=== PATIENT | female | born 1975 | race African-American/Black ===

== ENCOUNTER → 2016-12-23 | Outpatient (CLI) | payer BC ==
--- NOTE | 2016-12-23 12:24 | RADIOLOGY REPORT (SQ) ---
EXAM DESCRIPTION: SACRUM AND COCCYX COMPLETED DATE/TIME: 12/23/2016 12:14 pm REASON FOR STUDY: SACROCOCCYGEAL DISORDERS, NOT ELSEWHERE CLASSIFIED M53.3 SACROCOCCYGEAL DISORDERS , NOT ELSEWHERE CLASSIFIED COMPARISON: None. NUMBER OF VIEWS: Three views. TECHNIQUE: AP, lateral, and tilt views of the sacrum and coccyx. LIMITATIONS: None. FINDINGS: MINERALIZATION: Normal. BONES: No acute fracture or dislocation. No worrisome bone lesions. SOFT TISSUES: An IUD is present. OTHER: No other significant finding. IMPRESSION: NEGATIVE STUDY OF THE SACRUM AND COCCYX. TECHNICAL DOCUMENTATION: JOB ID: [id number] [employer]- All Rights Reserved
== END ==
LOC: OD 12:00
PROVIDERS: ATTEND Nurse Practitioner Acute Care
DX: M53.3 Sacrococcygeal disorders, not elsewhere classified (principal)
CPT/HCPCS: 72220

== ENCOUNTER → 2017-08-19 | Outpatient (CLI) | payer BC ==
--- NOTE | 2017-08-19 17:27 | WOMENS IMAGING REPORT ---
EXAM DESCRIPTION: BILAT DIAGNOSTIC MAMMO W/CAD; U/S BREAST UNILAT LIMITED COMPLETED DATE/TIME: 08/19/2017 11:21 am; 08/19/2017 12:20 pm REASON FOR STUDY: SCREENING MAMMO; LT [id number] N61.0 MASTITIS WITHOUT ABSCESS COMPARISON: None. TECHNIQUE: Standard craniocaudal and mediolateral oblique views of each breast recorded using digita l acquisition. Additional cleavage view, and cone compression views upper outer quadrant left breast. Left whole br east 90 mediolateral view. Left breast ultrasound was also performed. LIMITATIONS: None. FINDINGS: RIGHT BREAST MASSES: No suspicious masses. CALCIFICATIONS: No new or suspicious calcifications. ARCHITECTURAL DISTORTION: None. DEVELOPING DENSITY: None. ASYMMETRY: Asymmetrically dense fibroglandular tissue is seen in the far left upper outer quadrant. No discrete mass or worrisome features mammographically OTHER: No other significant findings. LEFT BREAST MASSES: No suspicious masses. CALCIFICATIONS: No new or suspicious calcifications. ARCHITECTURAL DISTORTION: None. DEVELOPING DENSITY: None. ASYMMETRY: None noted. OTHER: No other significant finding. Read with the assistance of CAD: .[facility] - R2 Cenova Version 1.3 .[facility] Imaging - R2 Cenova Version 1.3 .[facility] Imaging - R2 Cenova Version 2.4 .[facility] [place] R2 Cenova Version 2.4 .[facility] - R2 [employer] Version 9.2 Left breast ultrasound: Patient presents with a skin lesion which ruptured with losing in the medial left breast cleavage reg ion. Ultrasound of this area demonstrates a hypoechoic 2.4 x 1 x 0.3 cm fluid collection immediately deep to the skin surface. No peripheral increased color flow. This most likely represents residua of a ruptured sebaceous cyst. Ultrasound of the left far upper outer quadrant demonstrates no discrete cystic or solid lesions. No worrisome acoustic absorption. No focal sonographic findings. IMPRESSION: No mammographic evidence for malignancy right breast. No mammographic or sonographic evidence for malignancy left breast. BREAST DENSITY: b. There are scattered areas of fibroglandular density. BIRAD: 2 Benign findings. RECOMMENDATION: RECOMMENDED FOLLOW UP: Clinical follow-up for skin lesion in the medial left breast cleavage region. Otherwise, please continue yearly bilateral screening mammograms in August 2018. Consider bilateral screening tomosynthesis. SPECIFIC INTERVENTION/IMAGING/CONSULTATION RECOMMENDED:Clinical followup for skin lesion in the media l left breast COMMUNICATION:Patient notified by letter COMMENT: The patient has been notified of the results by letter per MQSA requirements. Additional no tification policies are in place for contacting patient with suspicious or incomplete findings. Quality ID #[id number]: The [employer] recommends an annual screening mammogram for women aged 40 years or over. This facility utilizes a reminder system to ensure that all patients receive reminder letters, and/or direct phone calls for appointments. This includes reminders for routine scr eening mammograms, diagnostic mammograms, or other Breast Imaging Interventions when appropriate. Th is patient will be placed in the appropriate reminder system. The [employer] (ACR) has developed recommendations for screening MRI of the breast s in certain patient populations, to be used in conjunction with mammography. Breast MRI surveillanc e may be appropriate for women with more than 20% lifetime risk of developing breast cancer as deter mined by genetic testing, significant family history of the disease, or history of mantle radiation f or Hodgkins Disease. ACR Practice Guidelines 2008. TECHNICAL DOCUMENTATION: FINDING NUMBER: (1) ASSESSMENT: (1) JOB ID: [id number] [employer]- All Rights Reserved
--- NOTE | 2017-08-19 17:27 | WOMENS IMAGING REPORT ---
EXAM DESCRIPTION: BILAT DIAGNOSTIC MAMMO W/CAD; U/S BREAST UNILAT LIMITED COMPLETED DATE/TIME: 08/19/2017 11:21 am; 08/19/2017 12:20 pm REASON FOR STUDY: SCREENING MAMMO; LT [id number] N61.0 MASTITIS WITHOUT ABSCESS COMPARISON: None. TECHNIQUE: Standard craniocaudal and mediolateral oblique views of each breast recorded using digita l acquisition. Additional cleavage view, and cone compression views upper outer quadrant left breast. Left whole br east 90 mediolateral view. Left breast ultrasound was also performed. LIMITATIONS: None. FINDINGS: RIGHT BREAST MASSES: No suspicious masses. CALCIFICATIONS: No new or suspicious calcifications. ARCHITECTURAL DISTORTION: None. DEVELOPING DENSITY: None. ASYMMETRY: Asymmetrically dense fibroglandular tissue is seen in the far left upper outer quadrant. No discrete mass or worrisome features mammographically OTHER: No other significant findings. LEFT BREAST MASSES: No suspicious masses. CALCIFICATIONS: No new or suspicious calcifications. ARCHITECTURAL DISTORTION: None. DEVELOPING DENSITY: None. ASYMMETRY: None noted. OTHER: No other significant finding. Read with the assistance of CAD: .[facility] - R2 Cenova Version 1.3 .[facility] Imaging - R2 Cenova Version 1.3 .[facility] Imaging - R2 Cenova Version 2.4 .[facility] [place] R2 Cenova Version 2.4 .[facility] - R2 [employer] Version 9.2 Left breast ultrasound: Patient presents with a skin lesion which ruptured with losing in the medial left breast cleavage reg ion. Ultrasound of this area demonstrates a hypoechoic 2.4 x 1 x 0.3 cm fluid collection immediately deep to the skin surface. No peripheral increased color flow. This most likely represents residua of a ruptured sebaceous cyst. Ultrasound of the left far upper outer quadrant demonstrates no discrete cystic or solid lesions. No worrisome acoustic absorption. No focal sonographic findings. IMPRESSION: No mammographic evidence for malignancy right breast. No mammographic or sonographic evidence for malignancy left breast. BREAST DENSITY: b. There are scattered areas of fibroglandular density. BIRAD: 2 Benign findings. RECOMMENDATION: RECOMMENDED FOLLOW UP: Clinical follow-up for skin lesion in the medial left breast cleavage region. Otherwise, please continue yearly bilateral screening mammograms in August 2018. Consider bilateral screening tomosynthesis. SPECIFIC INTERVENTION/IMAGING/CONSULTATION RECOMMENDED:Clinical followup for skin lesion in the media l left breast COMMUNICATION:Patient notified by letter COMMENT: The patient has been notified of the results by letter per MQSA requirements. Additional no tification policies are in place for contacting patient with suspicious or incomplete findings. Quality ID #225: The [employer] recommends an annual screening mammogram for women aged 40 years or over. This facility utilizes a reminder system to ensure that all patients receive reminder letters, and/or direct phone calls for appointments. This includes reminders for routine scr eening mammograms, diagnostic mammograms, or other Breast Imaging Interventions when appropriate. Th is patient will be placed in the appropriate reminder system. The [employer] (ACR) has developed recommendations for screening MRI of the breast s in certain patient populations, to be used in conjunction with mammography. Breast MRI surveillanc e may be appropriate for women with more than 20% lifetime risk of developing breast cancer as deter mined by genetic testing, significant family history of the disease, or history of mantle radiation f or Hodgkins Disease. ACR Practice Guidelines 2008. TECHNICAL DOCUMENTATION: FINDING NUMBER: (1) ASSESSMENT: (1) JOB ID: [id number] [employer]- All Rights Reserved
== END ==
LOC: RAD 10:31
PROVIDERS: ATTEND Internal Medicine
DX: N61.0 Mastitis without abscess (principal)
CPT/HCPCS: 76642; 77066

== ENCOUNTER → 2018-11-23 | Outpatient (CLI) | payer BC ==
[2018-11-23 10:52] LABS: ABSOLUTE EOSINOPHILS # (AUTO) 0.2 10^3/uL (0.0-0.6); ABSOLUTE LYMPHOCYTES (AUTO) 2.5 10^3/uL (0.5-4.7); ABSOLUTE MONOCYTES (AUTO) 0.4 10^3/uL (0.1-1.4); ABSOLUTE NEUT (AUTO) 1.7 10^3/uL (1.7-8.2); BASOPHILS % (AUTO) 0.9 % (0-2); EOSINOPHILS % (AUTO) 3.2 % (0-6); HEMATOCRIT 42.5 % (36.0-47.0); HEMOGLOBIN 14.2 g/dL (12.0-15.5); LYMPHOCYTES % (AUTO) 52.2 % (13-45); MEAN CORPUSCULAR HEMOGLOBIN 31.2 pg (27.0-33.4); MEAN CORPUSCULAR HGB CONC 33.3 g/dL (32.0-36.0); MEAN CORPUSCULAR VOLUME 94 fl (80-97); MONOCYTES % (AUTO) 7.7 % (3-13); PLATELET COUNT 266 10^3/uL (150-450); RED BLOOD COUNT 4.53 10^6/uL (3.72-5.28); RED CELL DISTRIBUTION WIDTH 14.7 % (11.5-14.0); TOTAL CELLS COUNTED % (AUTO) 100 %; WHITE BLOOD COUNT 4.8 10^3/uL (4.0-10.5)
[2018-11-23 10:54] LABS: APPEARANCE,URINE CLEAR; BILIRUBIN,URINE NEGATIVE (NEGATIVE); COLOR,URINE YELLOW; GLUCOSE, URINE NEGATIVE (NEGATIVE); KETONES,URINE NEGATIVE (NEGATIVE); LEUKOCYTE ESTERASE,URINE NEGATIVE (NEGATIVE); NITRITE,URINE NEGATIVE (NEGATIVE); PROTEIN,URINE NEGATIVE (NEGATIVE); URINE SPECIFIC GRAVITY 1.015; UROBILINOGEN,URINE NEGATIVE mg/dL (<2.0)
[2018-11-23 11:10] LABS: ALANINE AMINOTRANSFERASE 29 U/L (9-52); ALBUMIN 3.8 g/dL (3.5-5.0); ALKALINE PHOSPHATASE 64 U/L (38-126); ANION GAP 7 (5-19); ASPARTATE AMINO TRANSFERASE 27 U/L (14-36); BILIRUBIN,DIRECT 0.2 mg/dL (0.0-0.4); BILIRUBIN,TOTAL 0.4 mg/dL (0.2-1.3); BLOOD UREA NITROGEN 5 mg/dL (7-20); CALCIUM 9.4 mg/dL (8.4-10.2); CARBON DIOXIDE 28 mmol/L (22-30); CHLORIDE 105 mmol/L (98-107); CHOLESTEROL 267.74 mg/dL (0-200); GLUCOSE 83 mg/dL (75-110); POTASSIUM 4.8 mmol/L (3.6-5.0); SODIUM 140.3 mmol/L (137-145); TOTAL PROTEIN 7.1 g/dL (6.3-8.2); TRIGLYCERIDES 139 mg/dL (<150); URIC ACID 6.5 mg/dL (2.5-7.0)
[2018-11-23 11:21] LABS: DIRECT LDL 170 mg/dL (<100)
[2018-11-23 11:25] LABS: FREE T4 (FREE THYROXINE) 1.08 ng/dL (0.78-2.19)
[2018-11-23 11:39] LABS: THYROID STIMULATING HORMONE 1.63 uIU/mL (0.47-4.68)
== END ==
LOC: OD 09:50
PROVIDERS: ATTEND Internal Medicine
DX: Z13.1 Encounter for screening for diabetes mellitus (principal); I10 Essential (primary) hypertension
CPT/HCPCS: 36415; 80053; 80061; 81001; 83036; 84439; 84443; 84550; 85025

== ENCOUNTER 2020-03-21 19:26 | Observation (INO) | payer BC ==
[2020-03-21] MEDS ORDERED: ACETAMINOPHEN 325 MG TABLET PO ONE (21:14)
--- NOTE | 2020-03-21 23:29 | ER Document Report ---
ED General - General Chief Complaint: Chest Pain Stated Complaint: ABNORMAL LAB Notes: 44-year-old female history of prior PE presents with PE. Patient says that she is over the past 2 days had left upper chest pain exacerbated by breathing associated with shortness of breath. Patient had gone to urgent care last week for pain in her right hip and had imaging which was negative and then saw Dr. Powers today and was referred for CTA which showed PE so she was sent to ED. Patient has not had any recent anticoagulation. Reports prior hypercoagulability work-up being negative but mother has history of PE father of PE and paternal grandfather also had PE. Patient was on OCP when had prior PE but is not currently takin. patient denies any syncope, renal history, GI symptoms, other pulmonary history, cardiac history, recent travel/trauma/immobilization although patient works as a business analysis analyst TRAVEL OUTSIDE OF THE [place] IN LAST 30 DAYS: No - Related Data Allergies/Adverse Reactions: No Known Allergies Allergy (Unverified 03/21/20 19:47) Past Medical History - General Information source: Patient, Relative - Social History Smoking Status: Never Smoker Frequency of alcohol use: Occasional Drug Abuse: None Family History: Reviewed & Not Pertinent Patient has homicidal ideation: No - Past Medical History Cardiac Medical History: Reports: Hx Hypercholesterolemia Review of Systems - Review of Systems Notes: REVIEW OF SYSTEMS: CONSTITUTIONAL : Denies fever, chills, or sweats. EENT: Denies recent cold/sinus symptoms, denies throat pain CARDIOVASCULAR: + chest pain, +ANIKA RESPIRATORY: Denies cough, + shortness of breath. GASTROINTESTINAL: Denies abdominal pain, nausea/vomiting. GENITOURINARY: Denies difficulty urinating, painful urination. FEMALE GENITOURINARY: Denies abnormal vaginal bleeding, vaginal discharge. MUSCULOSKELETAL: Denies neck pain, back pain. SKIN: Denies rash or skin lesions. HEMATOLOGIC : Denies easy bruising or bleeding. LYMPHATIC: Denies swollen, enlarged glands. NEUROLOGICAL: Denies headache, denies change in gait. PSYCHIATRIC: Denies anxiety or stress or depression. Physical Exam - Vital signs Vitals: Resp 24 H 03/21/20 19:40 - Notes Notes: PHYSICAL EXAMINATION: GENERAL: Well-appearing, well-nourished, uncomfortable appearing but in no acute distress. HEAD: Atraumatic, normocephalic. EYES: Pupils equal round and appropriate constriction, sclera anicteric, conjunctiva are normal. ENT: nares patent, moist mucous membranes. NECK: Normal range of motion, supple without lymphadenopathy LUNGS: Breath sounds clear to auscultation bilaterally and equal. No wheezes rales or rhonchi. Mildly tachypneic, speaking in full sentences HEART: Mildly tachycardic, regular rhythm, no murmurs rubs or gallops ABDOMEN: Soft, nontender, no guarding, no masses, no CVAT EXTREMITIES: Normal range of motion, no pitting, mild edema bilaterally greater in left lower extremity, no hip tenderness, normal range of motion, normal inspection NEUROLOGICAL: Awake, alert, conversing appropriately, moves all extremities spontaneously. PSYCH: Normal mood, normal affect. SKIN: Warm, Dry, normal turgor, no rashes or lesions noted. 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 Patient appropriate for observation to ensure treatment response, placed on 2 L nasal cannula and patient feels more comfortable. 03/22/20 02:24 Patient continues to have chest pain and ordered single dose of morphine to facilitate care, remains hemodynamically stable, no worsening symptoms, no change in patient's status. - Vital Signs Vital signs: Temp Pulse Resp BP Pulse Ox 98.2 F 84 16 126/78 H 97 03/23/20 13:33 03/23/20 13:33 03/23/20 13:33 03/23/20 13:33 03/23/20 13:33 - Laboratory Result Diagrams: 03/21/20 23:25 03/21/20 23:25 Laboratory results interpreted by me: 03/21/20 03/21/20 03/21/20 23:25 23:25 23:25 RDW 14.6 H APTT 38.9 H Sodium 136.9 L - EKG Interpretation by Me Additional EKG results interpreted by me: 03/21/20 22:00 Sinus tachycardia, no significant ST elevations or depressions, no significant T wave abnormalities , QTc 423 Discharge - Discharge Clinical Impression: Acute pulmonary embolism Qualifiers: Pulmonary embolism type: unspecified Acute cor pulmonale presence: unspecified Qualified Code(s): I26.99 - Other pulmonary embolism without acute cor pulmonale Condition: Stable Disposition: ADMITTED OBSERVATION Admitting Provider: Priya Unit Admitted: Telemetry
[2020-03-21] MEDS ORDERED: ENOXAPARIN SODIUM INJ 150 MG/1 ML DISP.SYRIN SUBCUT SCH (23:30)
[2020-03-21 23:43] LABS: ABSOLUTE BASOPHILS # (AUTO) 0.1 10^3/uL (0.0-0.2); ABSOLUTE EOSINOPHILS # (AUTO) 0.1 10^3/uL (0.0-0.6); ABSOLUTE LYMPHOCYTES (AUTO) 2.8 10^3/uL (0.5-4.7); ABSOLUTE MONOCYTES (AUTO) 0.7 10^3/uL (0.1-1.4); ABSOLUTE NEUT (AUTO) 4.7 10^3/uL (1.7-8.2); BASOPHILS % (AUTO) 1.5 % (0-2); EOSINOPHILS % (AUTO) 0.8 % (0-6); HEMATOCRIT 39.4 % (36.0-47.0); HEMOGLOBIN 13.8 g/dL (12.0-15.5); LYMPHOCYTES % (AUTO) 33.6 % (13-45); MEAN CORPUSCULAR VOLUME 92 fl (80-97); MONOCYTES % (AUTO) 8.7 % (3-13); PLATELET COUNT 283 10^3/uL (150-450); RED BLOOD COUNT 4.31 10^6/uL (3.72-5.28); RED CELL DISTRIBUTION WIDTH 14.6 % (11.5-14.0); SEGMENTED NEUTROPHILS % (AUTO) 55.4 % (42-78); TOTAL CELLS COUNTED % (AUTO) 100 %; WHITE BLOOD COUNT 8.4 10^3/uL (4.0-10.5)
[2020-03-21 23:49] LABS: INTERNATIONAL RATION (INR) 0.98; PARTIAL THROMBOPLASTIN TIME 38.9 SEC (23.5-35.8); PROTHROMBIN TIME 13.2 SEC (11.4-15.4)
[2020-03-21 23:52] LABS: ALBUMIN 4.2 g/dL (3.5-5.0); ALKALINE PHOSPHATASE 63 U/L (38-126); ANION GAP 8 (5-19); ASPARTATE AMINO TRANSFERASE 21 U/L (14-36); BILIRUBIN,DIRECT 0.3 mg/dL (0.0-0.4); BILIRUBIN,TOTAL 0.6 mg/dL (0.2-1.3); BLOOD UREA NITROGEN 7 mg/dL (7-20); CALCIUM 9.2 mg/dL (8.4-10.2); CARBON DIOXIDE 23 mmol/L (22-30); CHLORIDE 106 mmol/L (98-107); GLUCOSE 92 mg/dL (75-110); POTASSIUM 4.2 mmol/L (3.6-5.0); TOTAL PROTEIN 7.6 g/dL (6.3-8.2)
[2020-03-22 00:04] LABS: NT PRO BNP 14 pg/mL (<125)
[2020-03-22 00:09] LABS: TROPONIN I < 0.012 ng/mL
[2020-03-22] MEDS ORDERED: APIXABAN 5 MG TABLET PO ONE ×2 (00:15→02:45)
[2020-03-22] MEDS ORDERED: MORPHINE SULFATE 10 MG/ML INJ IV ONE (02:24)
[2020-03-22] MEDS: APIXABAN 5 MG TABLET PO SCH ×2 (10:05→22:09)
--- NOTE | 2020-03-22 12:48 | RADIOLOGY REPORT (SQ) ---
EXAM DESCRIPTION: VENOUS BILATERAL LOWER IMAGES COMPLETED DATE/TIME: 03/22/2020 11:36 am REASON FOR STUDY: SUSPECT DVT COMPARISON: None. TECHNIQUE: Dynamic and static wilson scale and color images acquired of both lower extremity venous sy stems. Selected spectral images acquired with additional compression and augmentation maneuvers. Imag es stored on PACS. LIMITATIONS: None. FINDINGS: RIGHT LEG COMMON FEMORAL AND FEMORAL: Normal phasicity, compression and augmentation. No visualized echogenic m aterial on wilson scale. No defects on color images. POPLITEAL: Normal compression and augmentation. No visualized echogenic material on wilson scale. No de fects on color images. CALF VESSELS: Normal compression and augmentation. No visualized echogenic material on wilson scale. No defects on color image. GSV AND SSV: Normal compression. No visualized echogenic material on wilson scale. No defects on color images. ANY DEEP VENOUS INSUFFICIENCY: Not evaluated. ANY EVIDENCE OF POPLITEAL CYST: No. OTHER: No other significant finding. LEFT LEG COMMON FEMORAL AND FEMORAL: Normal phasicity, compression and augmentation. No visualized echogenic m aterial on wilson scale. No defects on color images. POPLITEAL: Normal compression and augmentation. No visualized echogenic material on wilson scale. No de fects on color images. CALF VESSELS: Normal compression and augmentation. No visualized echogenic material on wilson scale. No defects on color images. GSV AND SSV: Normal compression. No visualized echogenic material on wilson scale. No defects on color images. ANY DEEP VENOUS INSUFFICIENCY: Not evaluated. ANY EVIDENCE POPLITEAL CYST: No. OTHER: No other significant finding. IMPRESSION: NO EVIDENCE DVT OR SVT IN EITHER LEG. TECHNICAL DOCUMENTATION: JOB ID: [id number] 2010 [id number]- All Rights Reserved Reading location - IP/workstation name: [email or web address]
--- NOTE | 2020-03-22 16:45 | EKG REPORT ---
SEVERITY:- BORDERLINE ECG - SINUS TACHYCARDIA BORDERLINE T ABNORMALITIES, INFERIOR LEADS : Confirmed by: López Clifford MD 22-Mar-2020 16:45:04
[2020-03-22] MEDS: HYDROMORPHONE HCL INJ/PF 2 MG/ML AMPULE IV PRN (20:24)
--- NOTE | 2020-03-22 21:10 | PDOC H&P ---
History of Present Illness Admission Date/PCP: 03/21/20 23:37 BERTA SYKES MD History of Present Illness: MANUELITO KNOWLES is a 44 year old female,She came to the office for evaluation of pleuritic chest pain, shortness of breath, she was found to have increased pulse rate, she has a history of bilateral pulmonary embolism, strong family history of pulmonary embolism, both parents had pulmonary embolism, the father is the mother is alive, I suspected this could be pulmonary embolism a stat CT angiogram was requested it confirmed pulmonary embolism albeit small Past Medical History Cardiac Medical History: Reports: Hyperlipidema Psychiatric Medical History: Denies: Depression Social History Smoking Status: Never Smoker Frequency of Alcohol Use: Occasional Hx Recreational Drug Use: - 20+ years ago Drugs: Marijuana Family History Parental Family History Reviewed: Yes Children Family History Reviewed: Yes Sibling(s) Family History Reviewed.: Yes Medication/Allergy Home Medications: RX: Phentermine HCl 37.5 mg PO QAM 03/22/20 Allergies/Adverse Reactions: No Known Allergies Allergy (Unverified 03/21/20 19:47) Review of Systems Constitutional: ABSENT: chills, fever(s), headache(s), weight gain, weight loss Eyes: ABSENT: visual disturbances Ears: ABSENT: hearing changes Cardiovascular: PRESENT: dyspnea on exertion Respiratory: ABSENT: cough, hemoptysis Gastrointestinal: ABSENT: abdominal pain, constipation, diarrhea, hematemesis, hematochezia, nausea, vomiting Genitourinary: ABSENT: dysuria, hematuria Musculoskeletal: ABSENT: joint swelling Integumentary: ABSENT: rash, wounds Neurological: ABSENT: abnormal gait, abnormal speech, confusion, dizziness, focal weakness, syncope Psychiatric: ABSENT: anxiety, depression, homidical ideation, suicidal ideation Endocrine: ABSENT: cold intolerance, heat intolerance, menstrual abnormalities, polydipsia, polyuria Hematologic/Lymphatic: ABSENT: easy bleeding, easy bruising, lymphadenopathy Physical Exam Vital Signs: Temp Pulse Resp BP Pulse Ox 97.7 F 111 H 14 135/98 H 99 03/22/20 20:16 03/22/20 20:16 03/22/20 20:16 03/22/20 20:16 03/22/20 20:16 Intake & Output 03/21/20 03/22/20 03/23/20 06:59 06:59 06:59 Intake Total 240 Balance 240 Weight 131.542 kg General appearance: PRESENT: no acute distress, well-developed, well-nourished Head exam: PRESENT: atraumatic, normocephalic Eye exam: PRESENT: conjunctiva pink, EOMI, PERRLA Ear exam: PRESENT: normal external ear exam Mouth exam: PRESENT: moist, tongue midline Neck exam: PRESENT: full ROM Respiratory exam: PRESENT: clear to auscultation xavier Cardiovascular exam: PRESENT: RRR, +S1, +S2 Pulses: PRESENT: normal dorsalis pedis pul, +2 pedal pulses bilateral Vascular exam: PRESENT: normal capillary refill GI/Abdominal exam: PRESENT: normal bowel sounds, soft Rectal exam: PRESENT: deferred Neurological exam: PRESENT: alert, awake, oriented to person, oriented to place, oriented to time, oriented to situation, CN II-XII grossly intact Psychiatric exam: PRESENT: appropriate affect, normal mood Skin exam: PRESENT: dry, intact, warm Results Laboratory Results: 03/21/20 23:25 03/21/20 23:25 03/21/20 03/21/20 03/21/20 23:25 23:25 23:25 WBC 8.4 RBC 4.31 Hgb 13.8 Hct 39.4 MCV 92 MCH 32.0 MCHC 35.0 RDW 14.6 H Plt Count 283 Seg Neutrophils % 55.4 Sodium 136.9 L Potassium 4.2 Chloride 106 Carbon Dioxide 23 Anion Gap 8 BUN 7 Creatinine 0.63 Est GFR ( Amer) > 60 Glucose 92 Calcium 9.2 Total Bilirubin 0.6 AST 21 Alkaline Phosphatase 63 Total Protein 7.6 Albumin 4.2 Serum HCG, Qual Blood Type O POSITIVE Antibody Screen NEGATIVE 03/21/20 23:25 WBC RBC Hgb Hct MCV MCH MCHC RDW Plt Count Seg Neutrophils % Sodium Potassium Chloride Carbon Dioxide Anion Gap BUN Creatinine Est GFR ( Amer) Glucose Calcium Total Bilirubin AST Alkaline Phosphatase Total Protein Albumin Serum HCG, Qual NEGATIVE Blood Type Antibody Screen 03/21/20 23:25 Troponin I < 0.012 NT-Pro-B Natriuret Pep 14 Impressions: Venous Doppler Study 03/22/20 00:00 IMPRESSION: NO EVIDENCE DVT OR SVT IN EITHER LEG. Assessment & Plan - Diagnosis (1) Acute pulmonary embolism Qualifiers: Pulmonary embolism type: unspecified Acute cor pulmonale presence: unspecified Qualified Code(s): I26.99 - Other pulmonary embolism without acute cor pulmonale Is this a current diagnosis for this admission?: Yes Plan: This is recurrent PE, unprovoked, she will need to be on lifelong anticoagulation, start loading dose Eliquis 10 mg p.o. twice daily for 7 days (2) Morbid (severe) obesity due to excess calories Is this a current diagnosis for this admission?: Yes - Time Time Spent: Greater than 70 Minutes Medications reviewed and adjusted accordingly: Yes Anticipated Discharge Disposition: Home, Self Care Anticipated Discharge Timeframe: within 48 hours
[2020-03-23] MEDS: HYDROMORPHONE HCL INJ/PF 2 MG/ML AMPULE IV PRN (08:07)
[2020-03-23] MEDS: APIXABAN 5 MG TABLET PO SCH (09:08)
[2020-03-23] MEDS ORDERED: DOCUSATE SODIUM 100 MG CAPSULE PO SCH (12:30)
--- NOTE | 2020-03-23 13:32 | PDOC DISCHARGE SUMMARY ---
Impression - Admit/DC Date/PCP Admission Date/Primary Care Provider: 03/21/20 23:37 BERTA SYKES MD Discharge Date: 03/23/20 - Discharge Diagnosis (1) Acute pulmonary embolism Is this a current diagnosis for this admission?: Yes (2) Morbid (severe) obesity due to excess calories Is this a current diagnosis for this admission?: Yes (3) Pleurodynia Is this a current diagnosis for this admission?: Yes - Additional Information Referrals: BERTA SYKES MD [Primary Care Provider] - Follow up as needed Prescriptions: Acetaminophen with Codeine [Acetaminophen-Cod #4 Tablet] 1 each PO Q8H #60 tablet Apixaban [Eliquis 5 mg Tablet] 10 mg PO Q12 #10 tablet Home Medications: Phentermine HCl 37.5 mg PO QAM 03/22/20 Acetaminophen with Codeine [Acetaminophen-Cod #4 Tablet] 1 each PO Q8H #60 tablet 03/23/20 Apixaban [Eliquis 5 mg Tablet] 10 mg PO Q12 #10 tablet 03/23/20 History of Present Illiness History of Present Illness: MANUELITO KNOWLES is a 44 year old female,She came to the office for evaluation of pleuritic chest pain, shortness of breath, she was found to have increased pulse rate, she has a history of bilateral pulmonary embolism, strong family history of pulmonary embolism, both parents had pulmonary embolism, the father is the mother is alive, I suspected this could be pulmonary embolism a stat CT angiogram was requested it confirmed pulmonary embolism albeit small Hospital Course Hospital Course: Patient was admitted for the management of pulmonary embolism, she was brought in for observation, she was treated with oral anticoagulant Eliquis, loading dose 10 mg p.o. twice daily for 7 days then 5 mg p.o. daily for 1 year then 2.5 mg p.o. twice daily lifelong. This is recurrent pulmonary embolism, she has a history of bilateral pulmonary embolism, the PE is unprovoked. Lower extremity venous Doppler was obtained, negative for DVT, she also has chest pain, pleuritic chest pain treated with Dilaudid with relief discharged home on Tylenol with codeine No. 4 for control pain. Physical Exam Vital Signs: Temp Pulse Resp BP Pulse Ox 98.2 F 84 16 136/88 H 97 03/23/20 11:14 03/23/20 11:14 03/23/20 11:14 03/23/20 11:14 03/23/20 11:14 Intake & Output 03/22/20 03/23/20 03/24/20 06:59 06:59 06:59 Intake Total 240 480 Balance 240 480 Weight 131.542 kg General appearance: PRESENT: no acute distress Eye exam: PRESENT: PERRLA Respiratory exam: PRESENT: clear to auscultation xavier Cardiovascular exam: PRESENT: +S1, +S2 GI/Abdominal exam: PRESENT: soft Neurological exam: PRESENT: alert Results Laboratory Results: WBC 8.4 10^3/uL (4.0-10.5) 03/21/20 23:25 RBC 4.31 10^6/uL (3.72-5.28) 03/21/20 23:25 Hgb 13.8 g/dL (12.0-15.5) 03/21/20 23:25 Hct 39.4 % (36.0-47.0) 03/21/20 23:25 MCV 92 fl (80-97) 03/21/20 23:25 MCH 32.0 pg (27.0-33.4) 03/21/20 23:25 MCHC 35.0 g/dL (32.0-36.0) 03/21/20 23:25 RDW 14.6 % (11.5-14.0) H 03/21/20 23:25 Plt Count 283 10^3/uL (150-450) 03/21/20 23:25 Lymph % (Auto) 33.6 % (13-45) 03/21/20 23:25 [place] % (Auto) 8.7 % (3-13) 03/21/20 23:25 Eos % (Auto) 0.8 % (0-6) 03/21/20 23:25 Baso % (Auto) 1.5 % (0-2) 03/21/20 23:25 Absolute Neuts (auto) 4.7 10^3/uL (1.7-8.2) 03/21/20 23:25 Absolute Lymphs (auto) 2.8 10^3/uL (0.5-4.7) 03/21/20 23:25 Absolute Monos (auto) 0.7 10^3/uL (0.1-1.4) 03/21/20 23:25 Absolute Eos (auto) 0.1 10^3/uL (0.0-0.6) 03/21/20 23:25 Absolute Basos (auto) 0.1 10^3/uL (0.0-0.2) 03/21/20 23:25 Seg Neutrophils % 55.4 % (42-78) 03/21/20 23:25 PT 13.2 SEC (11.4-15.4) 03/21/20 23:25 INR 0.98 03/21/20 23:25 APTT 38.9 SEC (23.5-35.8) H 03/21/20 23:25 Sodium 136.9 mmol/L (137-145) L 03/21/20 23:25 Potassium 4.2 mmol/L (3.6-5.0) 03/21/20 23:25 Chloride 106 mmol/L (98-107) 03/21/20 23:25 Carbon Dioxide 23 mmol/L (22-30) 03/21/20 23:25 Anion Gap 8 (5-19) 03/21/20 23:25 BUN 7 mg/dL (7-20) 03/21/20 23:25 Creatinine 0.63 mg/dL (0.52-1.25) 03/21/20 23:25 Est GFR ( Amer) > 60 (>60) 03/21/20 23:25 Est GFR (MDRD) Non-Af > 60 (>60) 03/21/20 23:25 Glucose 92 mg/dL (75-110) 03/21/20 23:25 Calcium 9.2 mg/dL (8.4-10.2) 03/21/20 23:25 Total Bilirubin 0.6 mg/dL (0.2-1.3) 03/21/20 23:25 Direct Bilirubin 0.3 mg/dL (0.0-0.4) 03/21/20 23:25 Neonat Total Bilirubin Not Reportable 03/21/20 23:25 Neonat Direct Bilirubin Not Reportable 03/21/20 23:25 Neonat Indirect Bili Not Reportable 03/21/20 23:25 AST 21 U/L (14-36) 03/21/20 23:25 ALT 14 U/L (<35) 03/21/20 23:25 Alkaline Phosphatase 63 U/L (38-126) 03/21/20 23:25 Troponin I < 0.012 ng/mL 03/21/20 23:25 NT-Pro-B Natriuret Pep 14 pg/mL (<125) 03/21/20 23:25 Total Protein 7.6 g/dL (6.3-8.2) 03/21/20 23: Albumin 4.2 g/dL (3.5-5.0) 03/21/20 23:25 Serum HCG, Qual NEGATIVE (NEGATIVE) 03/21/20 23:25 Blood Type O POSITIVE 03/21/20 23:25 Antibody Screen NEGATIVE 03/21/20 23:25 03/21/20 23:25 Troponin I < 0.012 NT-Pro-B Natriuret Pep 14 Impressions: Venous Doppler Study 03/22/20 00:00 IMPRESSION: NO EVIDENCE DVT OR SVT IN EITHER LEG. Stroke Is this a Stroke Patient?: No Acute Heart Failure Is this a Heart Failure Patient?: No
[2020-03-23 13:36] VITALS: BP 126/78
== END 2020-03-23 13:58 | disposition home or self-care (01) ==
LOC: ER 19:26 → EH 23:37 → 5 03-22 13:45
PROVIDERS: ADMIT Internal Medicine; ATTEND Internal Medicine
DX: I26.99 Other pulmonary embolism without acute cor pulmonale (principal); E66.01 Morbid (severe) obesity due to excess calories; R07.81 Pleurodynia; Z82.49 Family history of ischemic heart disease and other diseases of the circulatory system; Z86.711 Personal history of pulmonary embolism
CPT/HCPCS: 93005; 99285; 86900; 86901; 36415; 86850; 84703; 85025; 85610; 85730; 80053; 84484; 83880; 93970; 93010; G0378 ×4; J2270; J1170 ×2

== ENCOUNTER → 2020-03-21 | Outpatient (CLI) | payer BC ==
--- NOTE | 2020-03-21 19:02 | RADIOLOGY REPORT (SQ) ---
EXAM DESCRIPTION: CTA CHEST IMAGES COMPLETED DATE/TIME: 03/21/2020 5:56 pm REASON FOR STUDY: (R06.02)SHORTNESS OF BREATH R06.02 SHORTNESS OF BREATH COMPARISON: None. TECHNIQUE: CT scan of the chest performed using helical scanning technique with dynamic intravenous contrast injection. Images reviewed with lung, soft tissue and bone windows. Reconstructed coronal and sagittal MPR images reviewed. Additional 3 dimensional post-processing performed to develop Maximal Intensity Projection images (N[place] P). All images stored on PACS. All CT scanners at this facility use dose modulation, iterative reconstruction, and/or weight based d osing when appropriate to reduce radiation dose to as low as reasonably achievable (ALARA). [facility]: Dose Right [facility]: CareDose [facility]: Dose Right [facility]: Teradose 4D [facility]: Kaeuferportal CONTRAST TYPE AND DOSE: contrast/concentration: Isovue 350.00 mmol/ml; Total Contrast Delivered: 75. 0 ml; Total Saline Delivered: 56.0 ml Contrast bolus adequate for pulmonary arteries and aorta. RENAL FUNCTION: Not recorded here. Refer to the technologist's notes. RADIATION DOSE: CT Rad equipment meets quality standard of care and radiation dose reduction techniq ues were employed. CTDIvol: 37.5 - 42.7 mGy. DLP: 1440 mGy-cm. . LIMITATIONS: None. FINDINGS: LUNGS AND PLEURA: No masses, infiltrates, or pneumothorax. No pleural effusions or pleura l calcifications. AORTA AND GREAT VESSELS: No aneurysm. No dissection. HEART: No pericardial effusion. No significant coronary artery calcifications. PULMONARY ARTERIES: There is a small embolus in 1 of the left lower lobe pulmonary arterial branches. See image 50 series 202. See image 35 series 23. See image 61 and image 63 series 3. HILAR AND MEDIASTINAL STRUCTURES: No identified masses or abnormal nodes. HARDWARE: None in the chest. UPPER ABDOMEN: No significant findings. Limited exam. THYROID AND OTHER SOFT TISSUES: No masses. No adenopathy. BONES: No acute or significant finding. 3D MIPS: Confirm above findings. OTHER: No other significant finding. IMPRESSION: There is a small embolus in 1 of the left lower lobe pulmonary arterial branches. COMMENT: Quality ID # [id number]: Final reports with documentation of one or more dose reduction techniques (e.g., Automated exposure control, adjustment of the mA and/or kV according to patient size, use of iterative reconstruction technique) TECHNICAL DOCUMENTATION: JOB ID: [id number] 2010 [employer]- All Rights Reserved Reading location - IP/workstation name: [email or web address]
== END ==
LOC: RAD 17:05
PROVIDERS: ATTEND Internal Medicine
DX: R06.02 Shortness of breath (principal)
CPT/HCPCS: 71275

== ENCOUNTER 2020-04-02 09:56 | Emergency (ER) | payer BC ==
--- NOTE | 2020-04-02 10:22 | ER Document Report ---
ED Medical Screen (RME) - General Chief Complaint: Productive Cough Stated Complaint: COUGHING UP BLOOD Time Seen by Provider: 04/02/20 10:15 Primary Care Provider: BERTA SYKES MD [Primary Care Provider] - Follow up as needed TRAVEL OUTSIDE OF THE [place] IN LAST 30 DAYS: No - HPI Notes: 04/02/20 10:20 44-year-old female with a history of pulmonary embolism that was diagnosed on March 21 and subsequently placed on Eliquis presents to the emergency room for hemoptysis that started this morning. Patient states she has a history of multiple blood clots in 2006. Patient reports she started with a upper respiratory infection beginning of March, was placed on a Z-Quirino, her symptoms became worse she came to the emergency room with a did find her blood clot, she was admitted. She is a patient of Dr. Sykes. States she does have an IUD unsure of her last menstrual cycle. Reports chest pain with deep breaths. Recently placed on blood pressure medication for hypertension. Denies any fevers or chills, abdominal pain, nausea vomiting or diarrhea. I have greeted and performed a rapid initial assessment of this patient. A comprehensive ED assessment and evaluation of the patient, analysis of test results and completion of the medical decision making process will be conducted by additional ED providers. PHYSICAL EXAMINATION: GENERAL: Well-appearing, well-nourished and in no acute distress. HEAD: Atraumatic, normocephalic. EYES: Pupils equal round extraocular movements intact, conjunctiva are normal. NECK: Normal range of motion CV: s1, s2 regular LUNGS: No respiratory distress Musculoskeletal: Normal range of motion NEUROLOGICAL: Normal speech, normal gait. SKIN: Warm, Dry, normal turgor, no rashes or lesions noted. - Related Data Allergies/Adverse Reactions: No Known Allergies Allergy (Unverified 03/21/20 19:47) Past Medical History - Social History Frequency of alcohol use: Occasional Drug Abuse: None - Past Medical History Cardiac Medical History: Reports: Hx Hypercholesterolemia Psychiatric Medical History: Denies: Hx Depression Physical Exam - Vital signs Vitals: Temp Pulse Resp BP Pulse Ox 98.7 F 97 18 143/79 H 98 04/02/20 10:00 04/02/20 10:00 04/02/20 10:00 04/02/20 10:00 04/02/20 10:00 Course - Vital Signs Vital signs: Temp Pulse Resp BP Pulse Ox 98.7 F 97 18 143/79 H 98 04/02/20 10:00 04/02/20 10:00 04/02/20 10:00 04/02/20 10:00 04/02/20 10:00 Doctor's Discharge - Discharge Referrals: BERTA SYKES MD [Primary Care Provider] - Follow up as needed
[2020-04-02 11:36] LABS: ABSOLUTE EOSINOPHILS # (AUTO) 0.1 10^3/uL (0.0-0.6); ABSOLUTE LYMPHOCYTES (AUTO) 2.3 10^3/uL (0.5-4.7); ABSOLUTE MONOCYTES (AUTO) 0.5 10^3/uL (0.1-1.4); ABSOLUTE NEUT (AUTO) 2.3 10^3/uL (1.7-8.2); BASOPHILS % (AUTO) 0.8 % (0-2); HEMATOCRIT 41.6 % (36.0-47.0); HEMOGLOBIN 14.1 g/dL (12.0-15.5); LYMPHOCYTES % (AUTO) 43.2 % (13-45); MEAN CORPUSCULAR HEMOGLOBIN 31.5 pg (27.0-33.4); MEAN CORPUSCULAR HGB CONC 33.7 g/dL (32.0-36.0); MEAN CORPUSCULAR VOLUME 93 fl (80-97); MONOCYTES % (AUTO) 9.3 % (3-13); PLATELET COUNT 370 10^3/uL (150-450); RED BLOOD COUNT 4.47 10^6/uL (3.72-5.28); RED CELL DISTRIBUTION WIDTH 14.2 % (11.5-14.0); SEGMENTED NEUTROPHILS % (AUTO) 44.7 % (42-78); TOTAL CELLS COUNTED % (AUTO) 100 %; WHITE BLOOD COUNT 5.2 10^3/uL (4.0-10.5)
[2020-04-02 11:37] LABS: APPEARANCE,URINE CLEAR; BILIRUBIN,URINE NEGATIVE (NEGATIVE); COLOR,URINE YELLOW; GLUCOSE, URINE NEGATIVE (NEGATIVE); KETONES,URINE NEGATIVE (NEGATIVE); LEUKOCYTE ESTERASE,URINE TRACE (NEGATIVE); NITRITE,URINE NEGATIVE (NEGATIVE); PROTEIN,URINE NEGATIVE (NEGATIVE); URINE SPECIFIC GRAVITY 1.003; UROBILINOGEN,URINE NEGATIVE mg/dL (<2.0)
[2020-04-02 11:39] LABS: INTERNATIONAL RATION (INR) 1.18; PROTHROMBIN TIME 15.2 SEC (11.4-15.4)
[2020-04-02 11:40] LABS: PARTIAL THROMBOPLASTIN TIME 43.5 SEC (23.5-35.8)
[2020-04-02 11:53] LABS: ALBUMIN 4.1 g/dL (3.5-5.0); ALKALINE PHOSPHATASE 68 U/L (38-126); ANION GAP 9 (5-19); ASPARTATE AMINO TRANSFERASE 28 U/L (14-36); BILIRUBIN,DIRECT 0.2 mg/dL (0.0-0.4); BILIRUBIN,TOTAL 0.4 mg/dL (0.2-1.3); BLOOD UREA NITROGEN 8 mg/dL (7-20); CALCIUM 9.2 mg/dL (8.4-10.2); CARBON DIOXIDE 24 mmol/L (22-30); CHLORIDE 106 mmol/L (98-107); GLUCOSE 88 mg/dL (75-110); POTASSIUM 4.8 mmol/L (3.6-5.0); TOTAL PROTEIN 7.3 g/dL (6.3-8.2)
--- NOTE | 2020-04-02 11:59 | RADIOLOGY REPORT (SQ) ---
EXAM DESCRIPTION: CTA CHEST IMAGES COMPLETED DATE/TIME: 04/02/2020 11:37 am REASON FOR STUDY: Hemoptysis, diagnosed PE 03/21, on Eliquis COMPARISON: 03/21/2020. TECHNIQUE: CT scan of the chest performed using helical scanning technique with dynamic intravenous contrast injection. Images reviewed with lung, soft tissue and bone windows. Reconstructed coronal and sagittal MPR images reviewed. Additional 3 dimensional post-processing performed to develop Maximal Intensity Projection images ([place] P). All images stored on PACS. All CT scanners at this facility use dose modulation, iterative reconstruction, and/or weight based d osing when appropriate to reduce radiation dose to as low as reasonably achievable (ALARA). [facility]: Dose Right [facility]: CareDose [facility]: Dose Right [facility]: Teradose 4D [facility]: Quippi CONTRAST TYPE AND DOSE: contrast/concentration: Isovue 350.00 mmol/ml; Total Contrast Delivered: 75. 0 ml; Total Saline Delivered: 45.5 ml Contrast bolus adequate for pulmonary arteries and aorta. RENAL FUNCTION: None required. The patient is less than 50 years old. RADIATION DOSE: CT Rad equipment meets quality standard of care and radiation dose reduction techniq ues were employed. CTDIvol: 19.8 - 37.5 mGy. DLP: 1384 mGy-cm. . LIMITATIONS: None. FINDINGS: LUNGS AND PLEURA: No masses, infiltrates, or pneumothorax. Interval development of a smal l left pleural effusion. Mild left lower lobe atelectasis. AORTA AND GREAT VESSELS: No aneurysm. Contrast bolus not optimized for the aorta. HEART: No pericardial effusion. No significant coronary artery calcifications. PULMONARY ARTERIES: No emboli visualized in the main pulmonary arteries or the segmental branches. HILAR AND MEDIASTINAL STRUCTURES: No identified masses or abnormal nodes. HARDWARE: None in the chest. UPPER ABDOMEN: No significant findings. Limited exam. THYROID AND OTHER SOFT TISSUES: No masses. No adenopathy. BONES: No acute or significant finding. 3D MIPS: Confirm above findings. OTHER: No other significant finding. IMPRESSION: NORMAL CTA OF THE CHEST. NO PULMONARY EMBOLI. INTERVAL DEVELOPMENT OF A SMALL LEFT PLEURAL EFFUSION WITH MILD ADJACENT ATELECTASIS. COMMENT: Quality ID # [id number]: Final reports with documentation of one or more dose reduction techniques (e.g., Automated exposure control, adjustment of the mA and/or kV according to patient size, use of iterative reconstruction technique) TECHNICAL DOCUMENTATION: JOB ID: [id number] 2010 [employer]- All Rights Reserved Reading location - IP/workstation name: [email or web address]
--- NOTE | 2020-04-02 14:18 | ER Document Report ---
ED General - General Chief Complaint: Productive Cough Stated Complaint: COUGHING UP BLOOD Time Seen by Provider: 04/02/20 10:15 Primary Care Provider: BERTA SYKES MD [Primary Care Provider] - Follow up as needed Mode of Arrival: Ambulatory Information source: Patient TRAVEL OUTSIDE OF THE [place] IN LAST 30 DAYS: No - HPI Notes: Patient presents with an episode of coughing up blood. She states her proxy 1 month she has had a cough. She says it was initially productive of thick sputum. She was then started on Zithromax and the sputum became thinner. However she developed some chest pain and her heart was racing so she went and saw her family physician. At that time he referred her to the hospital and ordered a CT scan of her chest. The CT scan was done last week and showed a small pulmonary embolism on the left side. She was discharged home on a blood thinner. Today for the first time she had one episode of bloody sputum. She still has a mild pain on the right mid back but none on the left. No fevers. She still has a cough although pretty much nonproductive now. The pain that she has in the right mid back is mainly to the lateral right side. No significant radiation. Not significantly decreased or increased with anything. It is a dull pain. It is relatively constant. - Related Data Allergies/Adverse Reactions: No Known Allergies Allergy (Unverified 03/21/20 19:47) Past Medical History - General Information source: Patient - Social History Smoking Status: Never Smoker Frequency of alcohol use: Occasional Drug Abuse: None Family History: Reviewed & Not Pertinent - Past Medical History Cardiac Medical History: Reports: Hx Hypercholesterolemia Psychiatric Medical History: Denies: Hx Depression Review of Systems - Review of Systems Constitutional: denies: Chills, Fever Cardiovascular: denies: Palpitations, Dizziness Gastrointestinal: denies: Diarrhea, Vomiting -: Yes All other systems reviewed and negative Physical Exam - Vital signs Vitals: Temp Pulse Resp BP Pulse Ox 98.7 F 97 18 143/79 H 98 04/02/20 10:00 04/02/20 10:00 04/02/20 10:00 04/02/20 10:00 04/02/20 10:00 Interpretation: Normal - General General appearance: Appears well, Alert - HEENT Head: Normocephalic, Atraumatic Eyes: Normal Pupils: PERRL - Respiratory Respiratory status: No respiratory distress Chest status: Nontender Breath sounds: Normal Chest palpation: Normal - Cardiovascular Rhythm: Regular Heart sounds: Normal auscultation Murmur: No - Abdominal Inspection: Normal Distension: No distension Bowel sounds: Normal Tenderness: Nontender Organomegaly: No organomegaly - Back Back: Normal, Nontender - Extremities General upper extremity: Normal inspection, Nontender, Normal color, Normal ROM, Normal temperature General lower extremity: Normal inspection, Nontender, Normal color, Normal ROM, Normal temperature, Normal weight bearing. No: Sebastian's sign - Neurological Neuro grossly intact: Yes Cognition: Normal Orientation: AAOx4 Aurora Coma Scale Eye Opening: Spontaneous Jacquie Coma Scale Verbal: Oriented Aurora Coma Scale Motor: Obeys Commands Jacquie Coma Scale Total: 15 Speech: Normal Motor strength normal: LUE, RUE, LLE, RLE Sensory: Normal - Psychological Associated symptoms: Normal affect, Normal mood - Skin Skin Temperature: Warm Skin Moisture: Dry Skin Color: Normal Course - Re-evaluation Re-evalutation: 04/02/20 14:15 Patient presents with 1 episode of hemoptysis after being started on a blood thinner for a diagnosis of pulmonary embolism. The embolism was diagnosed last week. She states in addition she has not had a chronic cough for 1 month despite being on antibiotic therapy. I called and discussed the case with the cartographic aide, Dr. Landry. He recommends a pertussis test and a Covid test. He states the patient can be discharged home. He asked that I start the patient on a reflux medicine as well as an antibiotic. I also called and discussed the case with the patient's primary physician, Dr. Sykes. He will follow-up with the patient in the office. 04/02/20 14:17 The patient was evaluated during a global COVID-19 pandemic and that diagnosis was suspected/considered upon their initial presentation. Their evaluation, treatment and testing was consistent with current guidelines for patients who present with complaints or symptoms and may be related to COVID-19. - Vital Signs Vital signs: Temp Pulse Resp BP Pulse Ox 98.7 F 97 18 143/79 H 98 04/02/20 10:00 04/02/20 10:00 04/02/20 10:00 04/02/20 10:00 04/02/20 10:00 - Laboratory Result Diagrams: 04/02/20 11:10 04/02/20 11:10 Laboratory results interpreted by me: 04/02/20 04/02/20 04/02/20 10:25 11:10 11:10 RDW 14.2 H APTT 43.5 H Urine Blood LARGE H Ur Leukocyte Esterase TRACE H - Diagnostic Test Radiology reviewed: Image reviewed, Reports reviewed Discharge - Discharge Clinical Impression: Pleural effusion, Hemoptysis, Person under investigation for COVID-19 Condition: Stable Disposition: HOME, SELF-CARE Instructions: COVID-19 Guidance for Persons Under Investigation Additional Instructions: Please call Dr. Sykes's office to make an appointment for this week. Prescriptions: Pantoprazole Sodium [Protonix [address] Tablet] 40 mg PO BID 30 Days #60 tablet. Doxycycline Hyclate [Vibramycin] 100 mg PO BID 10 Days #20 capsule Forms: Return to Work Referrals: BERTA SYKES MD [Primary Care Provider] - Follow up in 3-5 days
--- NOTE | 2020-04-02 14:35 | EKG REPORT ---
SEVERITY:- DEFECTIVE ECG - TECHNICALLY POOR TRACING - PLEASE REPEAT ECG! SINUS RHYTHM RIGHT ATRIAL ABNORMALITY BORDERLINE T ABNORMALITIES, INFERIOR LEADS : Confirmed by: Willa Roque MD 02-Apr-2020 14:34:27
[2020-04-02 14:46] VITALS: BP 114/75
== END 2020-04-02 14:46 | disposition home or self-care (01) ==
LOC: ER 09:56
DX: R04.2 Hemoptysis (principal); I26.99 Other pulmonary embolism without acute cor pulmonale; J98.11 Atelectasis; J90 Pleural effusion, not elsewhere classified; R07.9 Chest pain, unspecified; M54.9 Dorsalgia, unspecified; R05 Cough; Z20.828 Contact with and (suspected) exposure to other viral communicable diseases
CPT/HCPCS: 93005; 99285; 36415; 82962; 85025; 85610; 85730; 81025; 80053; 81001; 84484; 86317; 71275; 93010; U0003; C9803; 87635

== ENCOUNTER → 2020-05-07 | Outpatient (CLI) | payer BC ==
--- NOTE | 2020-05-07 16:27 | WOMENS IMAGING REPORT ---
EXAM DESCRIPTION: BILAT SCREENING MAMMO W/CAD IMAGES COMPLETED DATE/TIME: 05/07/2020 2:03 pm REASON FOR STUDY: ROUTINE SCTREENING MAMMOGRAM Z12.31 Z12.31 ENCNTR SCREEN MAMMOGRAM FOR MALIGNANT NEOPLASM OF YAHIR COMPARISON: 2018 EXAM PARAMETERS: Standard craniocaudal and mediolateral oblique views of each breast recorded using digital acquisition. Read with the assistance of CAD. .[facility] - [employer] Wheel Loader Operator Version 9.2 LIMITATIONS: None. FINDINGS: No suspicious masses, suspicious calcifications or architectural distortion. No areas of c oncern. IMPRESSION: NEGATIVE MAMMOGRAM. BIRADS 1 BREAST DENSITY: b. There are scattered areas of fibroglandular density. BIRAD: ASSESSMENT: 1 NEGATIVE RECOMMENDATION: ROUTINE SCREENING Please continue yearly bilateral screening mammography/tomosynthesis in April 2021 COMMENT: The patient has been notified of the results by letter per [place] requirements. Additional no tification policies are in place for contacting patient with suspicious or incomplete findings. Quality ID #[id number]: The [employer] recommends an annual screening mammogram for women aged 40 years or over. This facility utilizes a reminder system to ensure that all patients receive reminder letters, and/or direct phone calls for appointments. This includes reminders for routine scr eening mammograms, diagnostic mammograms, or other Breast Imaging Interventions when appropriate. Th is patient will be placed in the appropriate reminder system. TECHNICAL DOCUMENTATION: FINDING NUMBER: (1) ASSESSMENT: (1) JOB ID: [id number] 2010 [employer]- All Rights Reserved Reading location - IP/workstation name: [email or web address]
== END ==
LOC: WI 14:44
PROVIDERS: ATTEND Obstetrics & Gynecology
DX: Z12.31 Encounter for screening mammogram for malignant neoplasm of breast (principal)
CPT/HCPCS: 77067